=== PATIENT | male | born 1940 | race Caucasian/White ===

== ENCOUNTER 2019-02-16 22:02 | Emergency (ER) | payer MEDICARE ==
[~2019-02-16] VITALS: Ht 175.3 cm; Wt 104.3 kg
--- OUTSIDE RECORDS SUMMARY | 2019-02-16 22:05 | XMS REPORT | Clinical Summary ---
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 Active aspirin 81 MG chewable Take 81 mg by 0 tablet mouth. Active sildenafil (VIAGRA) 100 Take 100 mg 0 12/14/201 MG tablet by mouth. 6 Active triamcinolone (KENALOG) Apply bid to 0 0.025 % cream arm and chest 6 lesions. Active amLODIPine (NORVASC) 10 TAKE ONE 0 03/21/201 MG tablet TABLET BY 6 MOUTH EVERY DAY Active losartan (COZAAR) 100 MG TAKE ONE 0 tablet TABLET BY 6 MOUTH EVERY DAY Active insulin aspart (NOVOLOG INJECT 8 0 FLEXPEN) 100 unit/mL InPn UNITS UNDER 6 THE SKIN THREE TIMES A DAY ( BEFORE MEALS ) Active omeprazole (PRILOSEC) 20 TAKE ONE 0 12/04/201 MG capsule CAPSULE BY 7 MOUTH EVERY DAY Active oxybutynin (DITROPAN-XL) TAKE ONE 0 08/17/ 10 MG 24 hr tablet TABLET BY 6 MOUTH EVERY DAY Active pravastatin (PRAVACHOL) TAKE ONE 0 12/16/ 40 MG tablet TABLET BY 7 MOUTH AT BEDTIME Active primidone (MYSOLINE) 250 Take 250 mg 0 /20/201 MG tablet by mouth 7 nightly . Active insulin glargine 100 Inject 65 0 11/01/ unit/mL (3 mL) InPn Units 8 subcutaneousl y nightly. Active SITagliptin (JANUVIA) 100 Take 100 mg 0 MG tablet by mouth daily. Active predniSONE (DELTASONE) 20 Take 40 mg PO 12 tablet 0 MG tablet daily for 2 8 days then decreased by 10 mg every 3 days until completed. 11/01/2018 ranitidine (ZANTAC) 300 Take 1 tablet 30 tablet 0 MG tablet (300 mg 8 total) by mouth nightly. 11/01/2018 tiotropium (SPIRIVA WITH Inhale 1 30 capsule 0 HANDIHALER) 18 mcg capsule (18 8 inhalation capsule mcg total) by mouth via inhaler daily. 11/01/2018 albuterol HFA (VENTOLIN Inhale 1 puff 1 Inhaler 0 HFA) 90 mcg/actuation by mouth via 8 inhaler inhaler every 6 (six) hours as needed for Wheezing. Active Problems Problem Noted Date Cough 10/30/2017 Chronic obstructive pulmonary disease with acute exacerbation 10/30/2017 Type 2 diabetes mellitus, with long-term current use of insulin 10/30/2017 COPD exacerbation 10/30/2017 Post-operative state 10/02/2015 Social History Date Tobacco Use Types Packs/Day Years Used Never Smoker Smokeless Tobacco: Chew Current User Tobacco Cessation: Ready to Quit: No; Counseling Given: Yes Alcohol Use Drinks/Week oz/Week Comments No Sex Assigned at Date Recorded Not on file Industry Job Start Date Occupation Not on file Not on file Not on file Travel End Travel History Travel Start No recent travel history available. Last Filed Vital Signs Not on file Plan of Treatment Not on file Results Not on fileafter 02/15/2018 Insurance Payer Benefit Subscriber ID Type Phone Address Plan / Group [facility] xxxxxxxxxxx MEDICARE ADV Advance Directives For more information, please contact: [facility] [address] [place] [address] Date Inactivated Comments Code Status Date Activated 11/01/2017 12:59 PM Full Code 10/30/2017 5:57 PM This code status was determined by: Patient 10/03/2015 2:08 PM Full Code 10/02/2015 11:06 AM This code status was determined by: Patient
--- OUTSIDE RECORDS SUMMARY | 2019-02-16 22:05 | XMS REPORT ---
Author Author [facility] Address Unknown Phone Unavailable Care Team Providers Care Solar Installer Pv Name Role Phone GILMER WETS Unavailable Unavailable Problems This patient has no known problems. Allergies, Adverse Reactions, Alerts This patient has no known allergies or adverse reactions. Medications This patient has no known medications. Results Test Description Test Time Test Comments Text Results Atomic Results Result Comments POCT-GLUCOSE METER 2017-11-01 09:00:00 POC-GLUCOSE METER (BEAKER) (test maqg=1506) 159 mg/dL 70-110 TESTED AT [place] [id number] RAD, CHEST, 2 [id number] 01:37:00Reason for exam:->coughFINAL REPORT EXAMINATION: 2 view chest CLINICAL INDICATION: Cough IMPRESSION: In summary, no significant interval change. No definite evidence of focal lung consolidation-pneumonia, pulmonary edema or pleural effusion. The heart size is normal. Mediastinal contours are sharp. No evidence of an acute osseous abnormality or pneumothorax. Signed: Rony Layne Verified Date/Time: 11/01/2017 01:37:46 Reading Location: [address] -GLUCOSE [id number] 21:31:00* Test Item Value Reference Range Comments POC-GLUCOSE METER (BEAKER) (test qqcb=6400) 286 mg/dL 70-110 TESTED AT [place] [id number] [facility] [address] POCT-GLUCOSE [id number] 17:03:00* Test Item Value Reference Range Comments POC-GLUCOSE METER (BEAKER) (test amiw=6083) 258 mg/dL 70-110 TESTED AT [address] [address] POCT-GLUCOSE [id number] 12:21:00* Test Item Value Reference Range Comments POC-GLUCOSE METER (BEAKER) (test obxn=5256) 188 mg/dL 70-110 TESTED AT [facility] [address] [facility] [address] POCT-GLUCOSE [id number] 07:42:00* Test Item Value Reference Range Comments POC-GLUCOSE METER (BEAKER) (test hdww=8693) 232 mg/dL 70-110 TESTED AT [facility] [address] [facility] [address] POCT-GLUCOSE [id number] 03:11:00* Test Item Value Reference Range Comments POC-GLUCOSE METER (BEAKER) (test mrcu=0992) 250 mg/dL 70-110 TESTED AT [facility] [address] [facility] [address] B-TYPE NATRIURETIC FACTOR (BNP)2017-10-30 19:22:00* Test Item Value Reference Range Comments B-TYPE NATRIURETIC PEPTIDE (BEAKER) (test cryx=932) 34 pg/mL 0-100 BASIC METABOLIC [id number] 19:14:00* Test Item Value Reference Range Comments SODIUM (BEAKER) (test nygy=614) 138 meq/L 136-145 POTASSIUM (BEAKER) (test thhv=531) 4.0 meq/L 3.5-5.1 CHLORIDE (BEAKER) (test gydc=134) 101 meq/L 98-107 CO2 (BEAKER) (test xjpc=412) 27 meq/L 22-29 BLOOD UREA NITROGEN (BEAKER) (test adot=296) 13 mg/dL 7-21 CREATININE (BEAKER) (test suyc=473) 0.74 mg/dL 0.57-1.25 GLUCOSE RANDOM (BEAKER) (test rbod=548) 199 mg/dL 70-105 CALCIUM (BEAKER) (test qots=624) 9.1 mg/dL 8.4-10.2 EGFR (BEAKER) (test jebx=8614) 103 mL/min/1.73 sq m ESTIMATED GFR IS NOT ACCURATE CREATININE CLEARANCE IN PREDICTING GLOMERULAR FILTRATION RATE. ESTIMATED GFR IS NOT APPLICABLE FOR DIALYSIS PATIENTS. [id number] 19:05:00* Test Item Value Reference Range Comments D-DIMER QUANTITATIVE (BEAKER) (test mlyr=838) 0.56 MG/L FEU <0.50 Intended Use: The D-Dimer Assay can be used to aid in the diagnosis of Deep Vein Thrombosis (DVT) and Pulmonary Embolism Disease (PED).In patients with low pre- test probability, various studies concerning STA Liatest D-dimer test have repor matteo that with a cutoff value of 0.50 MG/L FEU, the Negative Predictive Value (DENTAL OFFICE COORDINATOR V) regarding the exclusion of thrombosis is within 95-100% range.CBC W/PLT COUNT & AUTO [id number] 18:52:00* Test Item Value Reference Range Comments WHITE BLOOD CELL COUNT (BEAKER) (test tgnv=004) 4.9 K/ L 3.5-10.5 RED BLOOD CELL COUNT (BEAKER) (test ojyt=165) 4.64 M/ L 4.63-6.08 HEMOGLOBIN (BEAKER) (test batu=590) 13.1 GM/DL 13.7-17.5 HEMATOCRIT (BEAKER) (test mjbf=469) 40.0 % 40.1-51.0 MEAN CORPUSCULAR VOLUME (BEAKER) (test bxbk=883) 86.2 fL 79.0-92.2 MEAN CORPUSCULAR HEMOGLOBIN (BEAKER) (test bdoe=230) 28.2 pg 25.7-32.2 MEAN CORPUSCULAR HEMOGLOBIN CONC (BEAKER) (test zbur=482) 32.8 GM/DL 32.3-36.5 RED CELL DISTRIBUTION WIDTH (BEAKER) (test gjxc=663) 15.1 % 11.6-14.4 PLATELET COUNT (BEAKER) (test zhyl=342) 168 K/CU MM 150-450 MEAN PLATELET VOLUME (BEAKER) (test qqsy=634) 9.6 fL 9.4-12.4 NUCLEATED RED BLOOD CELLS (BEAKER) (test jaak=812) 0 /100 WBC 0-0 NEUTROPHILS RELATIVE PERCENT (BEAKER) (test spoc=765) 54 % LYMPHOCYTES RELATIVE PERCENT (BEAKER) (test gwpr=039) 30 % MONOCYTES RELATIVE PERCENT (BEAKER) (test dmjz=703) 14 % EOSINOPHILS RELATIVE PERCENT (BEAKER) (test nzcu=994) 0 % BASOPHILS RELATIVE PERCENT (BEAKER) (test cleg=851) 0 % NEUTROPHILS ABSOLUTE COUNT (BEAKER) (test rcqn=762) 2.64 K/ L 1.78-5.38 LYMPHOCYTES ABSOLUTE COUNT (BEAKER) (test artn=638) 1.48 K/ L 1.32-3.57 MONOCYTES ABSOLUTE COUNT (BEAKER) (test pvhp=385) 0.70 K/ L 0.30-0.82 EOSINOPHILS ABSOLUTE COUNT (BEAKER) (test mzri=397) 0.01 K/ L 0.04-0.54 BASOPHILS ABSOLUTE COUNT (BEAKER) (test ntls=145) 0.01 K/ L 0.01-0.08 IMMATURE GRANULOCYTES-RELATIVE PERCENT (BEAKER) (test mphk=5529) 1 % 0-1 POCT-GLUCOSE [id number] 18:02:00* Test Item Value Reference Range Comments POC-GLUCOSE METER (BEAKER) (test burq=1163) 190 mg/dL 70-110 TESTED AT [facility] [address] [facility] [address]
[2019-02-16] MEDS ORDERED: KETOROLAC TROMETHAMINE 30 MG/ML VIAL IM STA (22:24)
[2019-02-16] MEDS ORDERED: ADVAIR 250-501 EACH (23:00)
[2019-02-16] MEDS ORDERED: BENZONATATE100 MG PO (23:00)
[2019-02-16] MEDS ORDERED: PRAVASTATIN SOD40 MG (23:00)
[2019-02-16] MEDS ORDERED: VENTOLIN HFA18 GM IH (23:00)
[2019-02-16] MEDS ORDERED: MYSOLINE250 MG (23:00)
[2019-02-16] MEDS ORDERED: OMEPRAZOLE40 MG (23:00)
[2019-02-16] MEDS ORDERED: XYZAL5 MG (23:00)
[2019-02-16] MEDS ORDERED: GABAPENTIN300 MG PO (23:00)
[2019-02-16] MEDS ORDERED: LANTUS 3ML100 UNITS/ SQ (23:00)
[2019-02-16] MEDS ORDERED: AMLODIPINE BESY10 MG PO (23:00)
[2019-02-16] MEDS ORDERED: ASPIRIN CHEW81 MG PO (23:00)
[2019-02-16] MEDS ORDERED: NOVOLOG100 UNIT/1 SQ (23:00)
[2019-02-16] MEDS ORDERED: LOSARTAN POTAS100 MG PO (23:00)
[2019-02-16] MEDS ORDERED: JANUVIA100 MG PO (23:00)
--- NOTE | 2019-02-16 23:00 | Diagnostic Imaging Report ---
LEFT SHOULDER - 3 Image(s) HISTORY: Fall, hurt COMPARISON: None available. FINDINGS: Bones: A comminuted fracture of the proximal humerus centered in the region of the anatomic neck. A slightly displaced posterior 5.9 x 1.6 cm fragment. Mild medial impaction at the metaphysis. Apparent extension to the articular surface. Os acromiale. Joints: Mild degenerative changes of the glenohumeral and acromioclavicular joints. Soft tissues: Regional soft tissue swelling. IMPRESSION: Acute, comminuted, fracture of the proximal humerus, centered anatomic neck. Signed by: Dr. Harmeet Mccarthy D.O., M.M.M. on 02/16/2019 10:57 PM
== END 2019-02-16 23:37 | disposition home or self-care (01) ==
LOC: FSED 22:02
DX: S42.292A Other displaced fracture of upper end of left humerus, initial encounter for closed fracture (principal); W01.0XXA Fall on same level from slipping, tripping and stumbling without subsequent striking against object, initial encounter; Y93.01 Activity, walking, marching and hiking; Y92.008 Other place in unspecified non-institutional (private) residence as the place of occurrence of the external cause; I10 Essential (primary) hypertension; J44.9 Chronic obstructive pulmonary disease, unspecified; E11.9 Type 2 diabetes mellitus without complications
CPT/HCPCS: 99283

== ENCOUNTER 2024-11-01 19:56 | Inpatient (IN) | payer MEDICARE ==
[~2024-11-01] VITALS: Ht 175.3 cm; Wt 105.7 kg
[~2024-11-01 19:56] MED LIST: ADVAIR 250-501 EACH; AMLODIPINE BESY10 MG PO; ASPIRIN CHEW81 MG PO; BENZONATATE100 MG PO; GABAPENTIN300 MG PO; JANUVIA100 MG PO; LANTUS 3ML100 UNITS/ SQ; LOSARTAN POTAS100 MG PO; MYSOLINE250 MG; NOVOLOG100 UNIT/1 SQ; OMEPRAZOLE40 MG PO; PRAVASTATIN SOD40 MG; VENTOLIN HFA18 GM IH; XYZAL5 MG
[2024-11-01 20:05] VITALS: TEMP 98.6
[2024-11-01] MEDS: HYDRALAZINE HCL 20 MG/ML VIAL IV ONE (21:40)
[2024-11-01] MEDS: ALBUTEROL/IPRATROPIUM 3 ML NEB NEB ONE (21:41)
[2024-11-01] MEDS: NITROGLYCERIN 2% OINT 1 GM PKT TOP ONE (21:41)
[2024-11-01 22:09] VITALS: PULSE 66; RESP 18
[2024-11-01] MEDS ORDERED: ONDANSETRON HCL INJ 2MG/ML 2ML 2 MG/ML VIAL IV PRN (22:15)
[2024-11-01] MEDS ORDERED: ENALAPRILAT IV INJ 1.25 MG/ML VIAL IV PRN (22:15)
[2024-11-01] MEDS ORDERED: DEXTROSE 50% SYRINGE 50 ML IV PRN (22:15)
[2024-11-01 22:30] VITALS: BP 156/80; PULSE 64; RESP 18; O2SAT 94
[2024-11-01 23:48] VITALS: PULSE 65; RESP 18; O2SAT 92
[2024-11-01 23:57] VITALS: BP 141/67; PULSE 65; RESP 20; TEMP 98.1; O2SAT 100
[2024-11-02] VITALS (10 sets, daily range): BP systolic 130–162; BP diastolic 62–81; PULSE 58–87; RESP 18–20; TEMP 97.5–98.6; O2SAT 96–100
[2024-11-02] MEDS: LEVOFLOXACIN 500MG/D5W 100ML IV SCH (01:17)
[2024-11-02 06:25] LABS: BASOPHILS # (AUTO) 0.1 (0.0-0.1); BASOPHILS % 0.7 % (0.0-1.0); EOSINOPHILS # (AUTO) 0.2 (0.0-0.4); EOSINOPHILS % 2.5 % (0.0-6.0); HEMOGLOBIN 14.2 g/dL (14.0-18.0); LYMPHOCYTES # (AUTO) 1.9 (1.0-3.2); MEAN CORPUSCULAR HEMOGLOBIN 28.2 pg (28-32); MEAN CORPUSCULAR HGB CONC 31.6 g/dL (31-35); MEAN CORPUSCULAR VOLUME 89.5 fL (81-99); MONOCYTES % 11.2 % (4.4-11.3); NEUTROPHILS # (AUTO) 5.4 (2.1-6.9); NEUTROPHILS % 63.1 % (38.7-80.0); PLATELET COUNT 173 x10e3/uL (140-360); RED BLOOD COUNT 5.03 x10e6/uL (4.3-5.7); RED CELL DISTRIBUTION WIDTH 15.3 % (11.7-14.4); WHITE BLOOD COUNT 8.51 x10e3/uL (4.8-10.8)
[2024-11-02 07:00] LABS: ANION GAP 15.1 mmol/L (8-16); CALCIUM 8.6 mg/dL (8.4-10.2); CREATININE, SERUM 0.87 mg/dL (0.72-1.25); POTASSIUM 4.1 mmol/L (3.5-5.1)
[2024-11-02 07:01] LABS: TROPONIN I 0.032 ng/mL (0-0.300)
[2024-11-02] MEDS: ALBUTEROL/IPRATROPIUM 3 ML NEB NEB SCH (07:09)
[2024-11-02] MEDS: FAMOTIDINE 20 MG TAB PO SCH (07:47)
[2024-11-02] MEDS: INSULIN REGULAR, HUMAN 100 UNIT/1 ML SQ SCH (08:10)
[2024-11-02] MEDS: ENOXAPARIN SOD INJ 40 MG/0.4 ML SYR SC SCH (09:18)
[2024-11-02] MEDS ORDERED: JARDIANCE10 MG PO (13:32)
[2024-11-02] MEDS ORDERED: ENTRESTO 49 MG1 EACH PO (13:32)
[2024-11-02] MEDS ORDERED: NOVOLOG100 UNIT/1 SC (13:32)
[2024-11-02] MEDS ORDERED: CRESTOR40 MG PO (13:32)
[2024-11-02] MEDS ORDERED: SPIRONOLACTONE25 MG PO (13:32)
[2024-11-02] MEDS ORDERED: CARVEDILOL25 MG PO (13:32)
[2024-11-02] MEDS ORDERED: ANORO ELLIPTA1 EACH PO (13:37)
[2024-11-02] MEDS ORDERED: BASAGLAR K100 UNIT/1 SC (13:37)
[2024-11-02] MEDS ORDERED: DYMISTA NASAL S23 GM INH (13:37)
[2024-11-02] MEDS ORDERED: ASPIRIN81 MG PO (13:39)
[2024-11-02] MEDS ORDERED: PRIMIDONE125 MG PO (13:39)
[2024-11-02] MEDS ORDERED: POTASSIUM CHLORIDE 20 MEQ TAB CR PO PRN (15:45)
[2024-11-02] MEDS ORDERED: DIPHENHYDRAMINE HCL 25 MG CAP PO PRN (15:45)
[2024-11-02] MEDS ORDERED: DEXTROSE 50% SYRINGE 50 ML IV PRN (15:45)
[2024-11-02] MEDS ORDERED: SIMETHICONE 80 MG CHEW PO PRN (15:45)
[2024-11-02] MEDS ORDERED: BENZONATATE 100 MG CAP PO PRN (15:45)
[2024-11-02] MEDS ORDERED: ALBUTEROL/IPRATROPIUM 3 ML NEB NEB PRN (15:45)
[2024-11-02] MEDS ORDERED: DOCUSATE SODIUM 100 MG CAP PO PRN (15:45)
[2024-11-02] MEDS ORDERED: LIDOCAINE 4% PATCH TP PRN (15:45)
[2024-11-02] MEDS ORDERED: HYDRALAZINE HCL 20 MG/ML VIAL IV PRN (15:45)
[2024-11-02] MEDS ORDERED: ACETAMINOPHEN 325 MG TAB PO PRN (15:45)
[2024-11-02] MEDS ORDERED: GUAIFENESIN/CODEINE 5 ML LIQD PO PRN (16:00)
[2024-11-02] MEDS: AZITHROMYCIN 250 MG TAB PO SCH (16:45)
[2024-11-02] MEDS: SACUBITRIL49MG/VALSARTAN51MG 1 EACH TABLET PO SCH (16:47)
[2024-11-02] MEDS: PREDNISONE 20 MG TAB PO SCH (16:47)
[2024-11-02] MEDS ORDERED: IOPAMIDOL 370 MG/ML 100 ML INFUS..BTL INJ ONE (19:13)
[2024-11-02] MEDS: PRIMIDONE 125 MG PO SCH (21:00)
[2024-11-02] MEDS: MELATONIN 5 MG TABLET PO PRN (21:28)
[2024-11-02] MEDS: ACETAMINOPHEN 325 MG TAB PO PRN (21:28)
[2024-11-02] MEDS: ASPIRIN 81 MG CHEW TAB PO SCH (21:28)
[2024-11-02] MEDS: INSULIN GLARGINE 100 UNITS/ML VIAL SQ SCH (21:35)
[2024-11-03] VITALS (16 sets, daily range): BP systolic 131–182; BP diastolic 57–85; PULSE 61–78; RESP 16–22; TEMP 97.2–98.2; O2SAT 95–100
[2024-11-03 05:17] LABS: BASOPHILS % 0.4 % (0.0-1.0); EOSINOPHILS % 0.1 % (0.0-6.0); HEMATOCRIT 46.9 % (38.2-49.6); HEMOGLOBIN 14.9 g/dL (14.0-18.0); LYMPHOCYTES # (AUTO) 0.8 (1.0-3.2); LYMPHOCYTES % 10.2 % (18.0-39.1); MEAN CORPUSCULAR HEMOGLOBIN 28.5 pg (28-32); MEAN CORPUSCULAR HGB CONC 31.8 g/dL (31-35); MEAN CORPUSCULAR VOLUME 89.8 fL (81-99); MONOCYTES # (AUTO) 0.4 (0.2-0.8); NEUTROPHILS # (AUTO) 6.5 (2.1-6.9); NEUTROPHILS % 83.9 % (38.7-80.0); PLATELET COUNT 151 x10e3/uL (140-360); RED BLOOD COUNT 5.22 x10e6/uL (4.3-5.7); WHITE BLOOD COUNT 7.74 x10e3/uL (4.8-10.8)
[2024-11-03 05:48] LABS: ANION GAP 16.7 mmol/L (8-16); CREATININE, SERUM 0.94 mg/dL (0.72-1.25); POTASSIUM 4.7 mmol/L (3.5-5.1)
[2024-11-03] MEDS: PANTOPRAZOLE SOD 40 MG TABEC PO SCH (07:10)
[2024-11-03] MEDS: Umeclidinium Brm/Vilanterol Tr (Anoro Ellipta 62.5-25 Mcg INH PO SCH (08:24)
[2024-11-03] MEDS: CRESTOR 10MG PO SCH (08:29)
[2024-11-03] MEDS: ALBUTEROL/IPRATROPIUM 3 ML NEB NEB SCH (12:35)
[2024-11-03] MEDS: QUETIAPINE FUMARATE 25 MG TAB PO SCH (20:51)
[2024-11-04] VITALS (13 sets, daily range): BP systolic 106–181; BP diastolic 40–77; PULSE 58–80; RESP 18–22; TEMP 97.3–98.2; O2SAT 94–100
[2024-11-04 05:04] LABS: BASOPHILS % 0.4 % (0.0-1.0); EOSINOPHILS # (AUTO) 0.1 (0.0-0.4); EOSINOPHILS % 1.1 % (0.0-6.0); HEMATOCRIT 45.7 % (38.2-49.6); HEMOGLOBIN 14.8 g/dL (14.0-18.0); LYMPHOCYTES % 20.6 % (18.0-39.1); MEAN CORPUSCULAR HEMOGLOBIN 28.4 pg (28-32); MEAN CORPUSCULAR HGB CONC 32.4 g/dL (31-35); MEAN CORPUSCULAR VOLUME 87.5 fL (81-99); MONOCYTES # (AUTO) 0.9 (0.2-0.8); MONOCYTES % 9.9 % (4.4-11.3); NEUTROPHILS # (AUTO) 6.4 (2.1-6.9); NEUTROPHILS % 67.6 % (38.7-80.0); PLATELET COUNT 178 x10e3/uL (140-360); RED BLOOD COUNT 5.22 x10e6/uL (4.3-5.7); RED CELL DISTRIBUTION WIDTH 14.9 % (11.7-14.4); WHITE BLOOD COUNT 9.46 x10e3/uL (4.8-10.8)
[2024-11-04 05:32] LABS: ANION GAP 13.9 mmol/L (8-16); CALCIUM 9.2 mg/dL (8.4-10.2); CREATININE, SERUM 0.84 mg/dL (0.72-1.25); POTASSIUM 3.9 mmol/L (3.5-5.1)
[2024-11-05] VITALS (9 sets, daily range): BP systolic 139–158; BP diastolic 55–76; PULSE 59–75; RESP 18–22; TEMP 97.6–98.7; O2SAT 94–100
== END 2024-11-05 15:40 | disposition short-term general hospital (02) | DRG 190 ==
LOC: FSED 20:04 → ERHOLD 22:21 → MED/SURG2 23:46
PROVIDERS: ADMIT Internal Medicine; ATTEND Internal Medicine
DX: J44.1 Chronic obstructive pulmonary disease with (acute) exacerbation (principal); J15.4 Pneumonia due to other streptococci; G91.2 (Idiopathic) normal pressure hydrocephalus; J44.0 Chronic obstructive pulmonary disease with (acute) lower respiratory infection; E11.9 Type 2 diabetes mellitus without complications; I10 Essential (primary) hypertension; I25.10 Atherosclerotic heart disease of native coronary artery without angina pectoris; R09.02 Hypoxemia; R53.81 Other malaise; K21.9 Gastro-esophageal reflux disease without esophagitis; R41.0 Disorientation, unspecified; Z11.52 Encounter for screening for COVID-19; E66.01 Morbid (severe) obesity due to excess calories; Z68.34 Body mass index [BMI] 34.0-34.9, adult; Z79.4 Long term (current) use of insulin; Z79.82 Long term (current) use of aspirin; Z79.51 Long term (current) use of inhaled steroids; Z79.84 Long term (current) use of oral hypoglycemic drugs; Z88.0 Allergy status to penicillin; Z88.8 Allergy status to other drugs, medicaments and biological substances; Z87.891 Personal history of nicotine dependence; Z83.3 Family history of diabetes mellitus; Z82.49 Family history of ischemic heart disease and other diseases of the circulatory system
CPT/HCPCS: 0223U; 36415; 70450; 70551; 71045; 71260; 80048; 80053; 82550; 82607; 82948; 83880; 84443; 84484; 85025; 87070; 87205; 87400; 93306; 94799; 99284; J0360; J0696; J1650; J1815; J1956; J2470; J7512; Q9967

== ENCOUNTER 2025-01-14 11:09 | Inpatient (IN) | payer MEDICARE ==
[2025-01-14] VITALS (9 sets, daily range): BP systolic 120–121; BP diastolic 68–74; PULSE 91–96; RESP 16–19; TEMP 97.3–98.1; O2SAT 93–97
[~2025-01-14] VITALS: Ht 175.3 cm; Wt 98.4 kg
[~2025-01-14 11:09] MED LIST changes: +ANORO ELLIPTA1 EACH PO; +ASPIRIN81 MG PO; +BASAGLAR K100 UNIT/1 SC; +CARVEDILOL25 MG PO; +CRESTOR40 MG PO; +DYMISTA NASAL S23 GM INH; +ENTRESTO 49 MG1 EACH PO; +JARDIANCE10 MG PO; +NOVOLOG100 UNIT/1 SC; +PRIMIDONE125 MG PO; +SPIRONOLACTONE25 MG PO
[2025-01-14 12:09] LABS: BASOPHILS % 0.6 % (0.0-1.0); EOSINOPHILS % 1.4 % (0.0-6.0); LYMPHOCYTES % 21.7 % (18.0-39.1); MONOCYTES % 10.9 % (4.4-11.3); NEUTROPHILS % 64.7 % (38.7-80.0); RED CELL DISTRIBUTION WIDTH 16.8 % (11.7-14.4)
[2025-01-14] MEDS: SODIUM CHLORIDE 0.9% 1000ML 1,000 ML IV ONE (12:18)
[2025-01-14] MEDS: METHYLPREDNISOLONE SOD SUCC 125 MG/2ML VIAL IV ONE (12:18)
[2025-01-14] MEDS: ALBUTEROL/IPRATROPIUM 3 ML NEB NEB ONE (12:28)
[2025-01-14 12:33] LABS: EST GLOMERULAR FILTRATION RATE 61.0 ML/MIN (>=60)
[2025-01-14] MEDS ORDERED: SODIUM CHLORIDE FLUSH 10 ML SYR INJ PRN (13:30)
[2025-01-14] MEDS: ALBUTEROL/IPRATROPIUM 3 ML NEB NEB SCH (14:59)
[2025-01-14] MEDS ORDERED: SIMETHICONE 80 MG CHEW PO PRN (15:15)
[2025-01-14] MEDS ORDERED: LIDOCAINE 4% PATCH TP PRN (15:15)
[2025-01-14] MEDS ORDERED: DEXTROSE 50% SYRINGE 50 ML IV PRN (15:15)
[2025-01-14] MEDS ORDERED: POTASSIUM CHLORIDE 20 MEQ TAB CR PO PRN (15:15)
[2025-01-14] MEDS ORDERED: ALBUTEROL/IPRATROPIUM 3 ML NEB NEB PRN (15:15)
[2025-01-14] MEDS ORDERED: DOCUSATE SODIUM 100 MG CAP PO PRN (15:15)
[2025-01-14] MEDS ORDERED: HYDRALAZINE HCL 20 MG/ML VIAL IV PRN (15:15)
[2025-01-14] MEDS ORDERED: FUROSEMIDE40 MG PO (15:45)
[2025-01-14] MEDS: Doxycycline IV 100 MG in SODIUM CHLORIDE 0.9% 100 ML IV SCH (15:45)
[2025-01-14] MEDS: ENOXAPARIN SOD INJ 40 MG/0.4 ML SYR SC SCH (17:00)
[2025-01-14] MEDS: METHYLPREDNISOLONE SOD SUCC 40 MG/ML VIAL 1ML IV SCH (20:25)
[2025-01-15] VITALS (15 sets, daily range): BP systolic 103–159; BP diastolic 54–90; PULSE 71–115; RESP 16–20; TEMP 97.4–98.2; O2SAT 94–100
[2025-01-15] MEDS: DIPHENHYDRAMINE HCL 25 MG CAP PO PRN (01:27)
[2025-01-15] MEDS: MELATONIN 5 MG TABLET PO PRN (01:27)
[2025-01-15] MEDS: BENZONATATE 100 MG CAP PO PRN (03:06)
[2025-01-15 05:51] LABS: BASOPHILS % 0.1 % (0.0-1.0); EOSINOPHILS % 0.0 % (0.0-6.0); LYMPHOCYTES % 8.2 % (18.0-39.1); MONOCYTES % 5.5 % (4.4-11.3); NEUTROPHILS % 85.4 % (38.7-80.0); RED CELL DISTRIBUTION WIDTH 16.2 % (11.7-14.4)
[2025-01-15 06:15] LABS: EST GLOMERULAR FILTRATION RATE 57.0 ML/MIN (>=60)
[2025-01-15] MEDS ORDERED: DEXTROSE 50% SYRINGE 50 ML IV PRN (08:30)
[2025-01-15] MEDS: CARVEDILOL 12.5 MG TAB PO SCH (09:31)
[2025-01-15] MEDS: SACUBITRIL49MG/VALSARTAN51MG 1 EACH TABLET PO SCH (09:32)
[2025-01-15] MEDS: ACETAMINOPHEN 325 MG TAB PO PRN (09:32)
[2025-01-15] MEDS: PANTOPRAZOLE SOD 40 MG TABEC PO SCH (09:32)
[2025-01-15] MEDS: INSULIN LISPRO 100 UNIT/1 ML 3ML VIAL SQ SCH (11:57)
[2025-01-15] MEDS: CRESTOR 10MG PO SCH (11:58)
[2025-01-15] MEDS: ONDANSETRON HCL INJ 2MG/ML 2ML 2 MG/ML VIAL IV PRN (17:40)
[2025-01-15] MEDS: NYSTATIN 15 GM POWDER UD BTL TOP SCH (17:49)
[2025-01-15] MEDS: PRIMIDONE 250 MG TABLET PO SCH (21:00)
[2025-01-15] MEDS: ASPIRIN 81 MG CHEW TAB PO SCH (21:07)
[2025-01-15] MEDS: MELATONIN 5 MG TABLET PO SCH (21:07)
[2025-01-15] MEDS: INSULIN GLARGINE 100 UNITS/ML VIAL SQ SCH (21:17)
[2025-01-16] VITALS (13 sets, daily range): BP systolic 93–120; BP diastolic 54–64; PULSE 65–83; RESP 17–22; TEMP 97.4–98.3; O2SAT 95–100
[2025-01-16] MEDS: METHYLPREDNISOLONE SOD SUCC 40 MG/ML VIAL 1ML IV SCH (09:05)
[2025-01-16] MEDS: PRIMIDONE 50 MG TAB PO SCH (21:26)
[2025-01-17] VITALS (12 sets, daily range): BP systolic 96–128; BP diastolic 48–70; PULSE 53–78; RESP 17–20; TEMP 97.5–98.4; O2SAT 96–100
[2025-01-17] MEDS: PREDNISONE 20 MG TAB PO SCH (09:17)
[2025-01-18] VITALS (11 sets, daily range): BP systolic 101–113; BP diastolic 51–60; PULSE 59–77; RESP 18–20; TEMP 97.5–98.2; O2SAT 94–100
[2025-01-18] MEDS: QUETIAPINE FUMARATE 25 MG TAB PO ONE (01:51)
[2025-01-18] MEDS: DOXYCYCLINE HYCLATE TABLET 100 MG TAB PO ONE (18:01)
== END 2025-01-18 18:30 | disposition home health service (06) | DRG 190 ==
LOC: ER 11:14 → ERHOLD 13:21 → MED/SURG2 19:07 → OBSVTOIN 01-17 08:44
PROVIDERS: ADMIT Internal Medicine; ATTEND Internal Medicine
DX: J44.1 Chronic obstructive pulmonary disease with (acute) exacerbation (principal); G93.41 Metabolic encephalopathy; G91.2 (Idiopathic) normal pressure hydrocephalus; E11.9 Type 2 diabetes mellitus without complications; I10 Essential (primary) hypertension; K21.9 Gastro-esophageal reflux disease without esophagitis; F03.90 Unspecified dementia, unspecified severity, without behavioral disturbance, psychotic disturbance, mood disturbance, and anxiety; Z79.82 Long term (current) use of aspirin; Z79.51 Long term (current) use of inhaled steroids; Z79.4 Long term (current) use of insulin; Z79.84 Long term (current) use of oral hypoglycemic drugs; Z88.0 Allergy status to penicillin; Z88.8 Allergy status to other drugs, medicaments and biological substances
CPT/HCPCS: 36415; 71045; 80053; 82948; 84484; 85025; 93005; 94640; 94799; 99252; 99284; G0378; J0360; J1650; J1815; J2405; J2470; J2919; J7030; J7050; J7512